=== PATIENT | male | born 1955 | race Caucasian/White ===

== ENCOUNTER 2020-02-29 02:41 | Emergency (ER) | payer MEDICARE, BC ==
[~2020-02-29] VITALS: Ht 177.8 cm; Wt 103.0 kg
[2020-02-29] MEDS ORDERED: IV NORMAL SALINE 50ML 50 ML ONE (03:27)
[2020-02-29] MEDS ORDERED: cefTRIAXone SODIUM 1 GM VIAL ONE (03:27)
[2020-02-29] MEDS ORDERED: DEXAMETHASONE SOD PHOS 10 MG/ML VIAL. IV ONE (03:30)
[2020-02-29] MEDS ORDERED: ESCITALOPRAM OX10 MG PO (03:32)
[2020-02-29] MEDS ORDERED: MORP-16 PO (03:32)
[2020-02-29] MEDS ORDERED: HYDR50TA6 PO (03:32)
[2020-02-29] MEDS ORDERED: ROSUVASTATIN CA10 MG PO (03:32)
[2020-02-29] MEDS ORDERED: LISI10TA2 PO (03:32)
[2020-02-29] MEDS ORDERED: METH2.5T PO (03:32)
[2020-02-29] MEDS ORDERED: ZOLP10TA PO (03:32)
[2020-02-29] MEDS ORDERED: TRAM50TA PO (03:32)
[2020-02-29] MEDS ORDERED: SULF500T36 PO (03:32)
[2020-02-29 03:34] LABS: BASO % 0 % (0-3); EOS % 0 % (0-3); HEMATOCRIT 35.6 % (39.0-53.0); HEMOGLOBIN 11.8 g/dL (13.0-17.5); LYMPH # 0.6 x10^3/uL (1.0-4.8); LYMPH % 13 % (24-48); MEAN CORPUSCULAR HEMOGLOBIN 33 pg (25-35); MEAN CORPUSCULAR HGB CONC 33 g/dL (31-37); MEAN CORPUSCULAR VOLUME 99 fL (79-100); MONO % 1 % (0-9); NEUT # 3.8 x10^3uL (1.8-7.7); NEUT % 86 % (31-73); PLATELET COUNT 224 x10^3/uL (140-400); RED BLOOD COUNT 3.61 x10^6/uL (4.30-5.70); RED CELL DISTRIBUTION WIDTH 14.5 % (11.5-14.5); WHITE BLOOD COUNT 4.5 x10^3/uL (4.0-11.0)
--- NOTE | 2020-02-29 03:55 | RAD ---
Single view chest dated 02/29/2020. No comparison available. CLINICAL INDICATION: Shortness of breath. FINDINGS: Single upright portable exam performed. Heart and mediastinal contours are within normal limits. Patc hy perihilar and bibasilar airspace disease. No pleural effusion or pneumothorax. IMPRESSION: Bilateral airspace disease, suspicious for pneumonia. Covid 19 pneumonitis not excluded. Electronically signed by: Hayden Ascencio MD (02/29/2020 3:52 AM) [facility]
[2020-02-29 03:57] LABS: ALBUMIN/GLOBULIN RATIO 0.7 (1.0-1.7); C REACTIVE PROTEIN 204.9 mg/L (0-3.3); CALCIUM 7.9 mg/dL (8.5-10.1); CREATININE 1.5 mg/dL (0.7-1.3); GFR 46.8; TOTAL BILIRUBIN 0.6 mg/dL (0.2-1.0); TOTAL PROTEIN 7.2 g/dL (6.4-8.2)
[2020-02-29 03:59] LABS: POTASSIUM 2.8 mmol/L (3.5-5.1)
[2020-02-29] MEDS ORDERED: CONTRAST GIVEN. MC PRN (04:15)
[2020-02-29] MEDS ORDERED: IOHEXOL 350 MG/ML 100 ML VIAL. IV ONE (04:30)
[2020-02-29 04:37] LABS: BGAS PH 7.53 (7.35-7.46)
--- NOTE | 2020-02-29 05:00 | RAD ---
CTA chest with contrast dated 02/29/2020. No comparison available. Clinical data indication: Shortness of breath. Hypoxia. TECHNIQUE: Contiguous axial imaging the chest performed following the intravenous administration of 75 cc Omnipa que 350. Study was performed as dedicated PE protocol with thin cut coronal MIPS 3-D reconstruction. One or more of the following individualized dose reduction techniques were utilized for this examinat ion: 1. Automated exposure control 2. Adjustment of the mA and/or kV according to patient size 3. Use of iterative reconstruction technique. FINDINGS: Contrast bolus is adequate. No evidence of central, lobar or segmental pulmonary embolus. Subsegmenta l branches are not well evaluated based on technique. Heart size is mildly enlarged. Mild aneurysmal dilation of the ascending thoracic aorta measuring 4.4 cm transverse. No pericardial effusion. Scattered coronary calcifications. Borderline enlarged bilat eral hilar, subcarinal and right paratracheal lymph nodes measure up to 10 mm short axis. No hilar or supraclavicular lymphadenopathy. Thyroid gland unremarkable. Central airways are patent. There is widespread airspace disease throughout both lungs with periphera l predominance and groundglass appearance. Small right pleural effusion. Limited images of the upper abdomen show no significant abnormality. There is a hyperdense nodule at the midpole right kidney posteriorly that measures about 1.7 cm, indeterminate. Bone windows show no acute findings. Multilevel spondylosis. IMPRESSION: 1. No evidence of central, lobar or segmental pulmonary embolus. 2. Widespread airspace disease throughout both lungs, consistent with pneumonia. Covid 19 pneumonitis not excluded. 3. Mild mediastinal and bilateral hilar lymphadenopathy, likely reactive. 4. Cardiomegaly with mild aneurysmal dilation of the ascending thoracic aorta. 5. Indeterminate hyperdense nodule at the midpole right kidney. This could represent a solid mass or complex cyst. Follow-up ultrasound may provide additional information. Electronically signed by: Hayden Ascencio MD (02/29/2020 4:58 AM) [facility]
--- NOTE | 2020-02-29 05:16 | PHYS DOC ---
Past History Past Medical History: Arthritis, Cancer, Constipation, GERD, High Cholesterol, Hypertension Additional Past Medical Histor: ASHWINES Past Surgical History: Cancer Surgery Alcohol Use: None Adult General Chief Complaint Chief Complaint: MULTIPLE COMPLAINTS [facility] HPI Patient is 64-year-old male past medical history of Crohn's presents to the emergency room stating that he is concerned he may have a Crohn's flareup. Patient states he has been having abdominal pain with nausea and diarrhea. This started last Thursday and has been getting worse since that time. Of note patient also has loss of taste, loss of smell, cough, shortness of breath, fever. These are not typical symptoms of his Crohn's. He feels very tired and has body aches. He recently went to [place] on a business trip and just returned 5 days ago. Review of Systems Review of Systems Complete ROS is negative unless otherwise documented in HPI Current Medications Current Medications Current Medications Medications (Trade) Dose Ordered Sig/Jeff Start Time Stop Time Status Last Admin Dose Admin Ceftriaxone Sodium 1 gm/ Sodium Chloride 50 ml @ 100 mls/hr 1X ONCE 02/29/20 04:00 02/29/20 04:29 DC 02/29/20 03:34 100 MLS/HR Ceftriaxone Sodium (Rocephin) 1 gm STK-MED ONCE 02/29/20 03:27 02/29/20 03:27 DC Dexamethasone Sodium Phosphate (Decadron) 10 mg 1X ONCE 02/29/20 03:30 02/29/20 03:31 DC 02/29/20 03:34 10 MG Info (Do NOT chart on this entry -- for MONITORING) 1 each PRN DAILY PRN 02/29/20 04:15 03/02/20 04:14 Iohexol (Omnipaque 350 Mg/ml) 100 ml 1X ONCE 02/29/20 04:30 02/29/20 04:31 DC 02/29/20 04:35 100 ML Sodium Chloride 50 ml @ As Directed STK-MED ONCE 02/29/20 03:27 02/29/20 03:27 DC Allergies Allergies Allergies Coded Allergies Type Severity Reaction Last Updated Verified No Known Drug Allergies 02/29/20 No Physical Exam Physical Exam General: Awake, alert, NAD. Well Nourished, well hydrated. Cooperative HEENT: Atraumatic, EOMI, PERRL, airway patent, moist oral mucosa Neck: Supple, trachea midline Respiratory: Decreased breath sounds bilaterally, diffuse crackles, mild increased work of breathing CV: RRR, no murmur, cap refill <2 GI: Soft, nondistended, nontender, no masses MSK: No obvious deformities Skin: Warm, dry, intact Neuro: A&O x3, speech NL, sensory and motor grossly intact, no focal deficits Psych: Normal affect, normal mood, not suicidal or homicidal Current Patient Data Vital Signs Vital Signs Date Time Temp Pulse Resp B/P (MAP) Pulse Ox O2 Delivery O2 Flow Rate FiO2 02/29/20 03:24 90 26 119/73 (88) 89 NonRebreather Mask 15.0 02/29/20 02:45 98.8 Lab Results Laboratory Tests Test 02/29/20 03:07 02/29/20 04:15 White Blood Count 4.5 x10^3/uL (4.0-11.0) Red Blood Count 3.61 x10^6/uL (4.30-5.70) L Hemoglobin 11.8 g/dL (13.0-17.5) L Hematocrit 35.6 % (39.0-53.0) L Mean Corpuscular Volume 99 fL (79-100) Mean Corpuscular Hemoglobin 33 pg (25-35) Mean Corpuscular Hemoglobin Concent 33 g/dL (31-37) Red Cell Distribution Width 14.5 % (11.5-14.5) Platelet Count 224 x10^3/uL (140-400) Neutrophils (%) (Auto) 86 % (31-73) H Lymphocytes (%) (Auto) 13 % (24-48) L Monocytes (%) (Auto) 1 % (0-9) Eosinophils (%) (Auto) 0 % (0-3) Basophils (%) (Auto) 0 % (0-3) Neutrophils # (Auto) 3.8 x10^3uL (1.8-7.7) Lymphocytes # (Auto) 0.6 x10^3/uL (1.0-4.8) L Monocytes # (Auto) 0.0 x10^3/uL (0.0-1.1) Eosinophils # (Auto) 0.0 x10^3/uL (0.0-0.7) Basophils # (Auto) 0.0 x10^3/uL (0.0-0.2) D-Dimer (Inés) 3.15 mg/L (0.00-0.50) H Sodium Level 138 mmol/L (136-145) Potassium Level 2.8 mmol/L (3.5-5.1) *L Chloride Level 93 mmol/L (98-107) L Carbon Dioxide Level 36 mmol/L (21-32) H Anion Gap 9 (6-14) Blood Urea Nitrogen 34 mg/dL (8-26) H Creatinine 1.5 mg/dL (0.7-1.3) H Estimated GFR (Cockcroft-Gault) 46.8 BUN/Creatinine Ratio 23 (6-20) H Glucose Level 119 mg/dL (70-99) H Lactic Acid Level 1.6 mmol/L (0.4-2.0) Calcium Level 7.9 mg/dL (8.5-10.1) L Total Bilirubin 0.6 mg/dL (0.2-1.0) Aspartate Amino Transferase (AST) 80 U/L (15-37) H Alanine Aminotransferase (ALT) 35 U/L (16-63) Alkaline Phosphatase 49 U/L (46-116) Creatine Kinase 917 U/L (39-308) H Troponin I Quantitative 0.068 ng/mL (0-0.055) H C-Reactive Protein 204.9 mg/L (0-3.3) H GD-Bqt-R-Type Natriuretic Peptide 211 pg/mL (0-124) H Total Protein 7.2 g/dL (6.4-8.2) Albumin 3.0 g/dL (3.4-5.0) L Albumin/Globulin Ratio 0.7 (1.0-1.7) L Blood pH 7.53 (7.35-7.46) H Blood Gas PCO2 42 mmHg (35-46) Blood Gas PO2 64 mmHg (80-100) L Blood Gas HCO3 35 mmol/L (21-28) H Arterial Bld O2 Saturation (Calc) 94 % (92-99) FiO2 80 % EKG EKG [] Radiology/Procedures Radiology/Procedures [] Heart Score Risk Factors: Risk Factors: DM, Current or recent (<one month) smoker, HTN, HLP, family history of CAD, obesity. Risk Scores: Risk Factors: DM, Current or recent (<one month) smoker, HTN, HLP, family history of CAD, obesity. Course & Med Decision Making Course & Med Decision Making Pertinent Labs and Imaging studies reviewed. (See chart for details) Patient is a 64-year-old male who presents to the emergency room complaining of abdominal symptoms. Of note patient has loss of taste, loss of smell, shortness of breath, severe hypoxia. Patient likely has coronavirus 19. Swab was sent for testing. Patient will be treated as presumed coronavirus 19. Upon arrival to the emergency room patient had significant hypoxia with a pulse ox in the 40s . He was placed initially on a nonrebreather and then placed on BiPAP. He was given steroids and Rocephin. Work-up was ordered to risk stratify the patient for his likely Covid infection. Lab work is as above. He did have an elevated D-dimer and given the increased rates of pulmonary embolisms with Covid a CT angio was done. CT at this time is negative for pulmonary embolism. Patient will need to be transferred to [facility] for pulmonology given severe respiratory failure. Dragon Disclaimer Dragon Disclaimer This electronic medical record was generated, in whole or in part, using a voice recognition dictation system. Critical Care Note Comments Critical Care: Authorized and Performed by: Pratik Cochran MD Total critical care time: approximately 45 minutes Due to a high probability of clinically significant, life threatening deterioration, the patient required my highest level of preparedness to intervene emergently and I personally spent this critical care time directly and personally managing the patient. This critical care time included obtaining a history; examining the patient; pulse oximetry; ventilator management if necessary; ordering and review of studies; arranging urgent treatment with development of a management plan; evaluation of patient's response to treatment; frequent reassessment; discussion with patient/family; and, discussions with other providers. This critical care time was performed to assess and manage the high probability of imminent, life-threatening deterioration that could result in multi-organ failure. It was exclusive of separately billable procedures and treating other patients and teaching time. Please see MDM section and the rest of the note for further information on patient assessment and treatment. Departure Departure: Impression: Primary Impression: Suspected 2019 novel coronavirus infection Additional Impression: Respiratory failure Disposition: 02 DC/TRF OTHER SHORT TERM HOS Condition: IMPROVED Referrals: PCP,UNKNOWN (PCP) Problem Qualifiers PRATIK COCHRAN MD Feb 29, 2020 05:16
[2020-02-29 05:22] VITALS: BP 100/64
--- NOTE | 2020-03-05 10:28 | NUR ---
IP: notified IP at [facility] of COVID result. Already aware.
== END 2020-02-29 06:18 | disposition short-term general hospital (02) ==
LOC: ER 02:41
DX: U07.1 COVID-19 (principal); J96.90 Respiratory failure, unspecified, unspecified whether with hypoxia or hypercapnia; M19.90 Unspecified osteoarthritis, unspecified site; K21.9 Gastro-esophageal reflux disease without esophagitis; E78.00 Pure hypercholesterolemia, unspecified; I10 Essential (primary) hypertension; K50.90 Crohn's disease, unspecified, without complications
CPT/HCPCS: 36415; 36600; 71045; 71275; 80053; 82550; 82803; 83605; 83880; 84484; 85025; 85379; 86140; 94660; 96365; 96375; 99291; C9803; J0696; J1100; Q9967; U0003; 99285-25